=== PATIENT | male | born 1940 | race Caucasian/White ===

== ENCOUNTER → 2018-11-22 | Outpatient (CLI) | payer MEDICARE ==
[~2018-11-22] MED LIST: DIAZ2TAB PO; LEVO75TA5 PO; OXYC5CAP2 PO
== END | disposition home or self-care (01) ==
LOC: STAR 10:32
PROVIDERS: ATTEND Surgery
DX: Z01.818 Encounter for other preprocedural examination (principal); R94.31 Abnormal electrocardiogram [ECG] [EKG]; K40.90 Unilateral inguinal hernia, without obstruction or gangrene, not specified as recurrent
CPT/HCPCS: 93005

== ENCOUNTER 2018-12-03 13:02 | Observation (INO) | payer MEDICARE ==
[~2018-12-03] VITALS: Ht 162.6 cm; Wt 51.0 kg
[2018-12-03] MEDS ORDERED: BUPIVACAINE/EPI 0.5% 1:200K ONE (13:23)
[2018-12-03] MEDS ORDERED: LACTATED RINGERS 1,000 ML IV SCH (13:24)
[2018-12-03 13:48] VITALS: BP 134/81
[2018-12-03] MEDS ORDERED: ONDANSETRON 2MG/ML, 2ML ONE (14:56)
[2018-12-03] MEDS ORDERED: CEFAZOLIN 1,000 MG ONE (14:56)
[2018-12-03] MEDS ORDERED: DEXAMETHASONE 4 MG/ML, 5ML ONE (14:56)
[2018-12-03] MEDS ORDERED: PROPOFOL 10 MG/ML, 20ML ONE (14:56)
[2018-12-03] MEDS ORDERED: FENTANYL PF 100 MCG/2ML ONE (15:06)
[2018-12-03] MEDS ORDERED: OXYcodone 5 MG/5 ML ORAL.SOL UDC ONE (16:29)
[2018-12-03] MEDS ORDERED: HYDROmorphone 2 MG/ML, 1ML IVPush PRN (16:30)
[2018-12-03] MEDS ORDERED: OXYcodone 5 MG/5 ML ORAL.SOL UDC PO PRN ×2 (16:30→18:00)
[2018-12-03] MEDS ORDERED: LABETALOL 5MG/ML, 20ML IV PRN (16:30)
[2018-12-03] MEDS ORDERED: KETOROLAC 30 MG/1 ML IV PRN (16:30)
[2018-12-03] MEDS ORDERED: ACETAMINOPHEN 325 MG TABLET PO PRN (16:30)
[2018-12-03] MEDS ORDERED: ALBUTEROL SULFATE 2.5 MG/3 ML NPPB PRN (16:30)
[2018-12-03] MEDS ORDERED: hydrALAzine 20 MG/ML, 1ML IV PRN (16:30)
[2018-12-03] MEDS ORDERED: PROMETHAZINE 25 MG/ML, 1ML IV PRN (16:30)
[2018-12-03] MEDS ORDERED: DIAZEPAM 5 MG/ML, 2ML IVPush PRN (16:30)
[2018-12-03] MEDS ORDERED: FENTANYL PF 100 MCG/2ML IV PRN (16:30)
[2018-12-03] MEDS ORDERED: MEPERIDINE/PF 25MG/0.5ML IVPush PRN (16:30)
[2018-12-03] MEDS ORDERED: HYDROmorphone 2 MG/ML, 1ML IV PRN (18:00)
[2018-12-03] MEDS ORDERED: ONDANSETRON 2MG/ML, 2ML IVPush PRN (18:00)
[2018-12-03] MEDS ORDERED: DIAZEPAM 2 MG TABLET PO PRN (18:00)
[2018-12-03] MEDS: ACETAMINOPHEN 325 MG TABLET PO SCH ×2 (18:00→23:41)
[2018-12-03 19:28] VITALS: BP 126/75
[2018-12-03] MEDS: LACTATED RINGERS 1,000 ML IV SCH (20:44)
[2018-12-04 00:23] VITALS: BP 123/72
[2018-12-04] MEDS: ACETAMINOPHEN 325 MG TABLET PO SCH (02:22)
[2018-12-04 04:05] VITALS: BP 108/63
[2018-12-04] MEDS ORDERED: LEVOTHYROXINE 75 MCG TABLET PO SCH (06:00)
[2018-12-04 06:46] VITALS: BP 113/71
[2018-12-04] MEDS: LACTATED RINGERS 1,000 ML IV SCH (09:30)
== END 2018-12-04 10:30 | disposition home or self-care (01) ==
LOC: OUT 13:02 → 4NOR 17:22 → OUT 19:39 → 4NOR 19:40 → DCLOUNGE 12-04 10:18
PROVIDERS: ADMIT Surgery; ATTEND Surgery
DX: K40.90 Unilateral inguinal hernia, without obstruction or gangrene, not specified as recurrent (principal); M45.9 Ankylosing spondylitis of unspecified sites in spine
CPT/HCPCS: 49505; C1781; G0378; J0690; J1100; J2405; J2704; J3010; J7120

== ENCOUNTER 2019-11-21 22:05 | Inpatient (IN) | payer MEDICARE ==
[~2019-11-21] VITALS: Ht 162.6 cm; Wt 46.0 kg
--- NOTE | 2019-11-21 22:50 | NUR ---
THIS IS A PLEASANT 79Y M THAT COMES IN TONIGHT FOR A NOSE BLEED PT WAS SEEN AT [facility] TODAY AND WAS D/C HOME. PT REPORTS BLEEDING CONTINUES DESPITE RHINO ROCKETS IN PLACE. [facility] REFERRED PT HERE TO US FOR FURTHER EVAL. PT DAUGHTER AT BEDSIDE. PT CONNECTED TO MONITORING, SHREYA GONZALEZ
[2019-11-21] MEDS ORDERED: TRANEXAMIC ACID 100 MG/ML, 10ML ONE (22:52)
[2019-11-21] MEDS ORDERED: TRANEXAMIC ACID 100 MG/ML, 10ML TP ONE (23:00)
[2019-11-21] MEDS ORDERED: NEOSPORIN OINT. PKT 1 PACKET ONE (23:10)
[2019-11-21 23:20] LABS: BASOPHILS # (AUTO) 0.04 x10^3/uL (0-0.1); BASOPHILS % (AUTO) 1 % (0-1); EOSINOPHILS # (AUTO) 0.01 x10^3/uL (0-0.4); EOSINOPHILS % (AUTO) 0 % (1-7); LYMPHOCYTES # (AUTO) 1.28 x10^3/uL (1-3.4); LYMPHOCYTES % (AUTO) 17 % (22-44); MD NO; MEAN CORPUSCULAR HEMOGLOBIN 31.7 pg (27.5-34.5); MEAN CORPUSCULAR VOLUME 93.2 fL (81-97); MEAN PLATELET VOLUME 7.7 fL (7.4-10.4); MONOCYTES # (AUTO) 0.86 x10^3/uL (0.2-0.8); MONOCYTES % (AUTO) 12 % (2-9); NEUTROPHILS # (AUTO) 5.25 x10^3/uL (1.8-6.8); NEUTROPHILS % (AUTO) 71 % (42-75); PLATELET COUNT 323 x10^3/uL (130-400); RED BLOOD COUNT 3.47 x10^6/uL (4.38-5.82); RED CELL DISTRIBUTION WIDTH 13.3 % (9.4-14.8)
[2019-11-21 23:29] LABS: ALANINE AMINOTRANSFERASE 16 U/L (12-78); ALBUMIN 2.7 g/dL (3.4-5.0); ANION GAP 8 mmol/L (5-15); CALCIUM 9.8 mg/dL (8.5-10.1); CHLORIDE 98 mmol/L (98-107); CREATININE 0.87 mg/dL (0.7-1.3)
[2019-11-21 23:31] LABS: ALKALINE PHOSPHATASE 68 U/L (45-117); BILIRUBIN,TOTAL 0.4 mg/dL (0.2-1.0); TOTAL PROTEIN 10.4 g/dL (6.4-8.2)
--- NOTE | 2019-11-21 23:40 | NUR ---
THIS TECH TRIAGED/ROOMED PT
--- NOTE | 2019-11-21 23:55 | NUR ---
[place] [phone] daughter
[2019-11-21 23:56] LABS: INTERNATIONAL NORMALIZED RATIO 0.98 (0.93-1.1); PROTHROMBIN TIME 10.4 Seconds (9.6-11.5)
--- NOTE | 2019-11-22 00:17 | NUR ---
REPORT TO ELIEZER SUTTON. PT READY FOR TRANSFER TO FLOOR AFTER CT
[2019-11-22] MEDS ORDERED: OMNIPAQUE 350 MG/ML, 100ML BOTTLE ONE (00:30)
[2019-11-22 00:47] VITALS: BP 137/77
[2019-11-22] MEDS ORDERED: ONDANSETRON 2MG/ML, 2ML IVPush PRN (01:00)
[2019-11-22] MEDS ORDERED: ACETAMINOPHEN 325 MG TABLET PO PRN (01:00)
[2019-11-22] MEDS ORDERED: morphine SULFATE 10 MG/ML, 1ML IVPush PRN (01:00)
[2019-11-22] MEDS ORDERED: DIAZEPAM 2 MG TABLET PO PRN (01:30)
[2019-11-22] MEDS ORDERED: LORazepam 2 MG/ML, 1ML IVPush ONE (02:00)
[2019-11-22 04:00] VITALS: BP 113/57
[2019-11-22 05:35] LABS: BASOPHILS # (AUTO) 0.05 x10^3/uL (0-0.1); BASOPHILS % (AUTO) 1 % (0-1); EOSINOPHILS # (AUTO) 0.04 x10^3/uL (0-0.4); EOSINOPHILS % (AUTO) 1 % (1-7); LYMPHOCYTES # (AUTO) 1.81 x10^3/uL (1-3.4); LYMPHOCYTES % (AUTO) 30 % (22-44); MD NO; MEAN CORPUSCULAR HEMOGLOBIN 31.6 pg (27.5-34.5); MEAN CORPUSCULAR HGB CONC 33.8 g/dL (33.2-36.2); MEAN CORPUSCULAR VOLUME 93.4 fL (81-97); MEAN PLATELET VOLUME 7.9 fL (7.4-10.4); MONOCYTES # (AUTO) 0.86 x10^3/uL (0.2-0.8); MONOCYTES % (AUTO) 14 % (2-9); NEUTROPHILS # (AUTO) 3.29 x10^3/uL (1.8-6.8); NEUTROPHILS % (AUTO) 54 % (42-75); PLATELET COUNT 297 x10^3/uL (130-400); RED BLOOD COUNT 3.34 x10^6/uL (4.38-5.82); RED CELL DISTRIBUTION WIDTH 12.9 % (9.4-14.8)
[2019-11-22] MEDS: LEVOTHYROXINE 75 MCG TABLET PO SCH (06:00)
[2019-11-22 07:24] VITALS: BP 103/63
[2019-11-22] MEDS: SODIUM CHLORIDE 0.9% 1,000 ML IV SCH ×2 (12:23→19:56)
[2019-11-22 12:44] VITALS: BP 115/67
[2019-11-22 18:52] LABS: BASOPHILS # (AUTO) 0.05 x10^3/uL (0-0.1); BASOPHILS % (AUTO) 1 % (0-1); EOSINOPHILS # (AUTO) 0.05 x10^3/uL (0-0.4); EOSINOPHILS % (AUTO) 1 % (1-7); LYMPHOCYTES # (AUTO) 1.75 x10^3/uL (1-3.4); LYMPHOCYTES % (AUTO) 26 % (22-44); MD NO; MEAN PLATELET VOLUME 7.8 fL (7.4-10.4); MONOCYTES # (AUTO) 1.06 x10^3/uL (0.2-0.8); MONOCYTES % (AUTO) 16 % (2-9); NEUTROPHILS # (AUTO) 3.73 x10^3/uL (1.8-6.8); NEUTROPHILS % (AUTO) 56 % (42-75); PLATELET COUNT 316 x10^3/uL (130-400); RED BLOOD COUNT 3.21 x10^6/uL (4.38-5.82); RED CELL DISTRIBUTION WIDTH 13.1 % (9.4-14.8)
[2019-11-22 19:49] VITALS: BP 114/65
[2019-11-23 00:41] VITALS: BP 110/66
[2019-11-23] MEDS: SODIUM CHLORIDE 0.9% 1,000 ML IV SCH (04:21)
[2019-11-23 05:16] LABS: BASOPHILS # (AUTO) 0.07 x10^3/uL (0-0.1); BASOPHILS % (AUTO) 1 % (0-1); EOSINOPHILS # (AUTO) 0.13 x10^3/uL (0-0.4); EOSINOPHILS % (AUTO) 2 % (1-7); LYMPHOCYTES # (AUTO) 1.72 x10^3/uL (1-3.4); LYMPHOCYTES % (AUTO) 22 % (22-44); MD NO; MEAN CORPUSCULAR HEMOGLOBIN 32.1 pg (27.5-34.5); MEAN CORPUSCULAR HGB CONC 33.9 g/dL (33.2-36.2); MEAN CORPUSCULAR VOLUME 94.7 fL (81-97); MEAN PLATELET VOLUME 7.7 fL (7.4-10.4); MONOCYTES # (AUTO) 1.11 x10^3/uL (0.2-0.8); MONOCYTES % (AUTO) 14 % (2-9); NEUTROPHILS # (AUTO) 4.82 x10^3/uL (1.8-6.8); NEUTROPHILS % (AUTO) 62 % (42-75); PLATELET COUNT 315 x10^3/uL (130-400); RED BLOOD COUNT 3.42 x10^6/uL (4.38-5.82); RED CELL DISTRIBUTION WIDTH 12.9 % (9.4-14.8)
[2019-11-23 05:27] LABS: ANION GAP 8 mmol/L (5-15); CALCIUM 9.2 mg/dL (8.5-10.1); CHLORIDE 99 mmol/L (98-107); CREATININE 0.77 mg/dL (0.7-1.3)
[2019-11-23] MEDS: LEVOTHYROXINE 75 MCG TABLET PO SCH (06:19)
[2019-11-23 07:11] VITALS: BP 116/67
[2019-11-23 13:01] VITALS: BP 132/70
== END 2019-11-23 14:40 | disposition home or self-care (01) | DRG 150 ==
LOC: ED 23:57 → EDIP 11-22 00:18 → 3N 11-22 00:28
PROVIDERS: ADMIT Internal Medicine; ATTEND Internal Medicine
PROC: 2Y51X5Z Removal of Nasal Packing Material (ICD-10-PCS; principal; 2019-11-22)
DX: R04.0 Epistaxis (principal); E43 Unspecified severe protein-calorie malnutrition; D62 Acute posthemorrhagic anemia; C85.90 Non-Hodgkin lymphoma, unspecified, unspecified site; E87.1 Hypo-osmolality and hyponatremia; Z68.1 Body mass index [BMI] 19.9 or less, adult; E03.9 Hypothyroidism, unspecified; E11.9 Type 2 diabetes mellitus without complications; Z79.82 Long term (current) use of aspirin
CPT/HCPCS: 36415; 70487; 80048; 80053; 85025; 85610; 85730; 99285; G0378; Q9967; J2060; J7030